=== PATIENT | male | born 1955 | race Caucasian/White ===

== ENCOUNTER 2017-10-24 09:04 | Day surgery (SDC) | payer OTHER ==
[2017-10-22 17:20] VITALS: BMI 23.0
[~2017-10-24 09:04] MED LIST: LACTATED RINGERS 1,000 ML IV SCH; LIDOCAINE 1% 20 ML VIAL (10MG/ML) FOR IV START INTRADERMA PRN
[2017-10-24 09:54] VITALS: RESP 16; TEMP 98.1
[2017-10-24] MEDS ORDERED: LIDOCAINE 1% INJ 10MG/ML (20 ML MDV) ONE (10:40)
[2017-10-24] MEDS ORDERED: PROPOFOL 10 MG/ML 20 ML VIAL IV ONE (10:40)
--- NOTE | 2017-10-24 10:48 | P.GSHP ---
History of Present Illness H&P Date: 10/24/17 Chief Complaint: Colon cancer screening Patient here today for colonoscopy. He has not had a complete colonoscopy in many years. He had 2 attempts in the last few years but was found to have a sigmoid stricture from diverticulitis. Patient underwent a low anterior resection in November of this year. He is doing well at this time. Denies rectal bleeding or melena. Past Medical History Past Medical History: Hypertension Additional Past Medical History / Comment(s): diverticulitis,bowel obstruction, steroids Aug 2017 History of Any Multi-Drug Resistant Organisms: None Reported Past Surgical History: Bowel Resection, Hernia Repair Additional Past Surgical History / Comment(s): double hernia Past Anesthesia/Blood Transfusion Reactions: Postoperative Nausea & Vomiting ( PONV) Additional Past Anesthesia/Blood Transfusion Reaction / Comment(s): no hx blood transfusion Smoking Status: Current every day smoker - Past Family History Mother Family Medical History: Cancer Medications and Allergies Home Medications Medication Instructions Recorded Confirmed Type Acetaminophen [Tylenol] 325 mg PO Q4H PRN 10/22/17 10/24/17 History Fluticasone Nasal [place] [Flonase 1 - 2 spr EA NOSTRIL DAILY 10/22/17 10/24/17 History Nasal [place]] Metoprolol Tartrate [Lopressor] 100 mg PO BID 10/22/17 10/24/17 History Allergies Allergy/AdvReac Type Severity Reaction Status Date / Time metronidazole [From Flagyl] Allergy mucscle Verified 10/24/17 09:47 cramping Surgical - Exam Vital Signs Temp Pulse Resp BP Pulse Ox 98.1 F 57 L 16 162/74 100 10/24/17 09:49 10/24/17 09:49 10/24/17 09:49 10/24/17 09:49 10/24/17 09:49 Physical exam: General: Well-developed, well-nourished HEENT: Normocephalic, sclerae nonicteric Abdomen: Nontender, nondistended Extremities: No edema Neuro: Alert and oriented Assessment and Plan (1) Colon cancer screening Narrative/Plan: Will proceed with colonoscopy at this time. Current Visit: Yes Status: Acute Code(s): Z12.11 - ENCOUNTER FOR SCREENING FOR MALIGNANT NEOPLASM OF COLON SNOMED Code(s): 152110004
[2017-10-24] MEDS ORDERED: IV FLUID CONTINUATION 300 ML IV ONE (10:54)
--- NOTE | 2017-10-24 11:08 | P.PCN ---
Date of Procedure: 10/24/17 Procedure(s) Performed: PREOPERATIVE DIAGNOSIS: Colon cancer screening POSTOPERATIVE DIAGNOSIS: Multiple colonic polyps PROCEDURE: Colonoscopy snare polypectomy ANESTHESIA: MAC SURGEON: Jean-Claude Phillip M.D. SPECIMENS: Multiple colonic polyps ENDOSCOPIC PROCEDURE: The patient was placed on the endoscopy table in the left decubitus position. The Olympus colonoscope was inserted into the anus and passed under direct visualization to the base of the cecum. The appendiceal orifice was visualized. From that point the scope was slowly withdrawn inspecting all surfaces carefully. The cecum appeared free of abnormalities. In the ascending colon 2 separate polyps both removed using the snare with cautery technique. The transverse colon was spared of any abnormalities. In the descending colon along its length there were multiple polyps seen. A total of 6 were removed using the snare with cautery technique. The anastomosis was widely patent. The rectum was normal. No visible diverticulosis was seen. Digital rectal examination was normal. The patient was taken to the recovery room in stable condition per anesthesia guidelines. RECOMMENDATIONS: Await Biopsy results. Given the multitude of polyps would recommend follow-up colonoscopy in 3 years.
[2017-10-24 11:28] VITALS: BP 143/82; PULSE 50
== END 2017-10-24 11:56 | disposition home or self-care (01) ==
LOC: ORWHC2ENDO 09:04
PROVIDERS: ATTEND Surgery
DX: Z12.11 Encounter for screening for malignant neoplasm of colon (principal); D12.2 Benign neoplasm of ascending colon; D12.4 Benign neoplasm of descending colon; I10 Essential (primary) hypertension; F17.200 Nicotine dependence, unspecified, uncomplicated; Z88.1 Allergy status to other antibiotic agents; Z79.899 Other long term (current) drug therapy; Z90.49 Acquired absence of other specified parts of digestive tract; Z80.9 Family history of malignant neoplasm, unspecified
CPT/HCPCS: 45385; 88305; J2001; J2704

== ENCOUNTER 2021-08-21 07:41 | Day surgery (SDC) | payer OTHER ==
[~2021-08-21 07:41] MED LIST changes: +LIDOCAINE 1% (10MG/ML) FOR IV START INTRADERMA PRN; -LIDOCAINE 1% 20 ML VIAL (10MG/ML) FOR IV START INTRADERMA PRN
[2021-08-21 08:02] VITALS: TEMP 98.4
[2021-08-21] MEDS ORDERED: PROPOFOL 10 MG/ML 20 ML VIAL IV ONE (08:19)
[2021-08-21] MEDS ORDERED: ONDANSETRON 4 MG/2 ML VIAL ONE (08:19)
[2021-08-21] MEDS ORDERED: IV FLUID CONTINUATION 1,000 ML IV ONE (08:36)
--- NOTE | 2021-08-21 08:36 | P.PCN ---
Date of Procedure: 08/21/21 Procedure(s) Performed: PREOPERATIVE DIAGNOSIS: Colon cancer screening, history of polyps POSTOPERATIVE DIAGNOSIS: Ascending colon polyp PROCEDURE: Colonoscopy with snare polypectomy ANESTHESIA: MAC SURGEON: Jean-Claude Phillip M.D. SPECIMENS: Polyp ENDOSCOPIC PROCEDURE: The patient was placed on the endoscopy table in the left decubitus position. The Olympus colonoscope was inserted into the anus and passed under direct visualization to the base of the cecum. The appendiceal orifice was visualized. From that point the scope was slowly withdrawn inspecting all surfaces carefully. There were no neoplastic inflammatory or polypoid lesions throughout the cecum. In the ascending colon a small polyp was removed using the snare with cautery technique. The remainder of the ascending transverse descending and rectum appeared normal. The left-sided colorectal anastomosis was widely patent. The rectum appeared normal. There was no visible diverticulosis. Digital rectal examination was normal. The patient was taken to the recovery room in stable condition per anesthesia guidelines. RECOMMENDATIONS: Await biopsy results. Recommend repeat colonoscopy 5 years.
[2021-08-21 09:06] VITALS: BP 100/67; PULSE 78; RESP 18
== END 2021-08-21 09:12 | disposition home or self-care (01) ==
LOC: ORWHC2ENDO 07:41
PROVIDERS: ATTEND Surgery
DX: Z12.11 Encounter for screening for malignant neoplasm of colon (principal); D12.2 Benign neoplasm of ascending colon; I10 Essential (primary) hypertension; F17.200 Nicotine dependence, unspecified, uncomplicated; Z79.899 Other long term (current) drug therapy
CPT/HCPCS: 45385; 88305; J2405; J2704